=== PATIENT | female | born 1940 | race Hispanic/Latino ===

== ENCOUNTER 2017-09-09 07:24 | Outpatient (CLI) | payer MEDICARE, MEDICAID ==
--- NOTE | 2017-09-09 11:35 | RAD ---
UPPER GI: Date: 09/09/17 COMPARISON: None. HISTORY: Evaluate hiatal hernia. FINDINGS: [employer] radiograph of the abdomen demonstrates a nonobstructed bowel gas pattern. A double contrast upper GI was performed. The distal esophagus is diffusely distended/dilated through out this examination. When the patient was initially imaged in the standing position. There is a sugg estion of a hiatal hernia which does not fill with contrast media. When the patient is in the supine and prone position, the hiatal hernia fills, and is located in the left paraesophageal region. This h iatal hernia is moderate in size. When the patient is prone and supine, there is marked reflux of con trast media from the stomach and the hiatal hernia into the proximal esophagus at the level of the cl avicles. The stomach appears otherwise unremarkable. IMPRESSION: Moderate sized left paraesophageal hiatal hernia. The esophagus is diffusely dilated and tortuous wit h severe gastroesophageal reflux to the level of the thoracic inlet. POS: [facility]
== END 2017-09-09 07:25 | disposition home or self-care (01) ==
LOC: RAD 07:24
PROVIDERS: ATTEND Specialist
DX: K44.9 Diaphragmatic hernia without obstruction or gangrene (principal); K21.9 Gastro-esophageal reflux disease without esophagitis
CPT/HCPCS: 74247

== ENCOUNTER → 2017-09-09 | Day surgery (SDC) | payer MEDICARE, MEDICAID | LOC: ENDO/OP 07:30 | PROVIDERS: ATTEND Specialist | DX: K44.9 Diaphragmatic hernia without obstruction or gangrene (principal); I10 Essential (primary) hypertension; E78.00 Pure hypercholesterolemia, unspecified; E07.9 Disorder of thyroid, unspecified; E11.9 Type 2 diabetes mellitus without complications; Z79.84 Long term (current) use of oral hypoglycemic drugs; Z79.52 Long term (current) use of systemic steroids; Z79.899 Other long term (current) drug therapy | CPT/HCPCS: 91010 ==

== ENCOUNTER 2017-09-30 07:55 | Observation (INO) | payer MEDICARE, MEDICAID ==
[2017-09-30 08:48] LABS: #Eosinphils 0.3 thou/uL (0.0-0.7); #Lymphocytes 2.4 thou/uL (1.20-3.40); #Monocytes 0.5 thou/uL (0.11-0.59); #Neutrophils 3.1 thou/uL (1.40-6.50); %Basophils 0.6 % (0.0-1.0); %Eosinophils 5.4 % (0.0-10.0); %Lymphocytes 37.1 % (21.0-51.0); %Monocytes 8.3 % (0.0-10.0); %Neutrophils 48.6 % (42.0-75.0); Hemoglobin 10.2 g/dL (12.0-16.0); Mean Corpuscular HGB CONC 30.6 g/dL (32.0-36.0); Mean Corpuscular Hemoglobin 23.8 pg (27.0-31.0); Mean Platelet Volume 9.4 fL (7.4-10.4); Platelet Count 190 thou/uL (130-400); Red Blood Cell (RBC) Count 4.29 mill/uL (4.20-5.40); White Blood Cell (WBC) Count 6.3 thou/uL (4.8-10.8)
[2017-09-30 08:57] LABS: Anion Gap 12 mmol/L (10-20); BUN (Urea Nitrogen) 12 mg/dL (9.8-20.1); Calc. Creatinine Clearance 59 mL/min (70-130); Calcium 9.3 mg/dL (7.8-10.44); Carbon Dioxide 25 mmol/L (23-31); Chloride 108 mmol/L (98-107); Estimated GFR-MDRD 66; Glucose 103 mg/dL (83-110); Sodium 141 mmol/L (136-145)
[2017-09-30] MEDS ORDERED: Ketorolac Tromethamine 30 MG/ML VIAL ONE (08:59)
[2017-09-30] MEDS ORDERED: CEFAZOLIN/Water 2 GM/20 ML SYRINGE ONE (08:59)
[2017-09-30] MEDS ORDERED: Fentanyl 250 MCG/5 ML VIAL ONE (10:54)
[2017-09-30] MEDS ORDERED: Bupivacaine/Epinephrine 0.25% 30 ML VIAL ONE (10:56)
[2017-09-30] MEDS ORDERED: Promethazine HCl 25 MG/ML VIAL IM PRN ×2 (12:38→15:53)
[2017-09-30] MEDS ORDERED: Ondansetron HCl/PF 4 MG/2 ML Vial IVP PRN ×2 (12:38→15:53)
[2017-09-30] MEDS ORDERED: Promethazine HCl 25 MG/ML VIAL SLOW IVP PRN (12:38)
[2017-09-30] MEDS ORDERED: Morphine Sulfate 2 MG/ML SYRINGE SLOW IVP PRN (12:38)
[2017-09-30] MEDS ORDERED: Dextrose 50% Abboject 50 ML SYRINGE SLOW IVP PRN (15:53)
[2017-09-30] MEDS ORDERED: Insulin Regular 300 UNITS/3 ML VIAL SC PRN (15:53)
[2017-09-30] MEDS ORDERED: Calcium Carbonate 500 MG ChewTAB PO PRN (15:53)
[2017-09-30] MEDS ORDERED: Mag-Al 1200 mg/1200 mg/30 ML UDCUP PO PRN (15:53)
[2017-09-30] MEDS ORDERED: Morphine 4 MG/ML VIAL SLOW IVP PRN ×2 (15:53)
[2017-09-30] MEDS ORDERED: hydrALAZINE 20 MG/ML VIAL SLOW IVP PRN (15:53)
[2017-09-30] MEDS ORDERED: Dextrose 5% in Water 1,000 ML IV PRN (15:53)
[2017-09-30] MEDS ORDERED: HYDROcodone/Acetaminophen 5/325 mg Tablet PO PRN (15:53)
[2017-09-30 16:00] VITALS: BMI 29.4
[2017-09-30] MEDS: Lactated Ringer's 1,000 ML IV SCH (16:20)
[2017-09-30] MEDS ORDERED: PROPOFOL 200 MG/20 ML VIAL ONE (16:37)
[2017-09-30] MEDS ORDERED: Lidocaine 1% PF 5 ML VIAL ONE (16:37)
[2017-09-30] MEDS ORDERED: ePHEDrine/0.9% NaCl/PF SYRINGE 50 mg/10 ml ONE (16:37)
[2017-09-30] MEDS ORDERED: Succinylcholine Chloride 20 MG/ML 10 ml SYRINGE FS ONE (16:37)
[2017-09-30] MEDS ORDERED: Glycopyrrolate 0.2 MG/ML 5 ML SYRINGE ONE (16:37)
[2017-09-30] MEDS ORDERED: Dexamethasone 20 MG/5 ML VIAL ONE (16:37)
[2017-09-30] MEDS: Ketorolac Tromethamine 30 MG/ML VIAL IVP SCH ×2 (17:24→23:27)
[2017-09-30] MEDS: Famotidine 20 MG TAB PO SCH (21:53)
[2017-09-30] MEDS: Famotidine/PF 20 mg/2ml Vial SLOW IVP SCH (21:54)
[2017-09-30] MEDS: HYDROcodone/Acetaminophen 5/325 mg Tablet PO PRN (21:54)
[2017-10-01] MEDS: Lactated Ringer's 1,000 ML IV SCH (03:30)
[2017-10-01 05:47] LABS: #Lymphocytes 1.4 thou/uL (1.20-3.40); #Monocytes 0.5 thou/uL (0.11-0.59); #Neutrophils 5.5 thou/uL (1.40-6.50); %Basophils 0.3 % (0.0-1.0); %Eosinophils 0.2 % (0.0-10.0); %Lymphocytes 18.5 % (21.0-51.0); %Neutrophils 74.1 % (42.0-75.0); Hemoglobin 8.5 g/dL (12.0-16.0); Mean Corpuscular HGB CONC 31.8 g/dL (32.0-36.0); Mean Corpuscular Hemoglobin 24.9 pg (27.0-31.0); Mean Corpuscular Volume 78.1 fl (81.0-99.0); Mean Platelet Volume 9.1 fL (7.4-10.4); Platelet Count 139 thou/uL (130-400); RBC Distribution Width 15.7 % (11.5-14.5); Red Blood Cell (RBC) Count 3.42 mill/uL (4.20-5.40); White Blood Cell (WBC) Count 7.4 thou/uL (4.8-10.8)
[2017-10-01] MEDS: Ketorolac Tromethamine 30 MG/ML VIAL IVP SCH ×2 (05:49→12:14)
[2017-10-01] MEDS: HYDROcodone/Acetaminophen 5/325 mg Tablet PO PRN ×2 (05:56→12:16)
[2017-10-01] MEDS ORDERED: Levothyroxine Sodium 100 MCG TAB PO SCH (06:00)
--- NOTE | 2017-10-01 07:01 | EKG ---
Test Reason : PREOP Blood Pressure : / mmHG Vent. Rate : 060 BPM Atrial Rate : 060 BPM P-R Int : 170 ms QRS Dur : 084 ms QT Int : 456 ms P-R-T Axes : 052 -09 050 degrees QTc Int : 456 ms Normal sinus rhythm Normal ECG No previous ECGs available Confirmed by IVAN BELL ([id number]) on 10/01/2017 7:01:44 AM Referred By: LORE Confirmed By:IVAN BELL
[2017-10-01 08:00] VITALS: TEMP 98.2
[2017-10-01] MEDS: Famotidine 20 MG TAB PO SCH (08:56)
[2017-10-01] MEDS ORDERED: Prevnar 13-Val Conj/PF 0.5 ML SYRINGE IM ONE (09:00)
[2017-10-01] MEDS: Famotidine/PF 20 mg/2ml Vial SLOW IVP SCH (09:49)
[2017-10-01 11:29] VITALS: BP 180/96
--- NOTE | 2017-10-04 11:46 | OP ---
DATE OF OPERATION: 09/30/2017 PREOPERATIVE DIAGNOSES: Hiatal hernia and gastroesophageal reflux disease. POSTOPERATIVE DIAGNOSES: Hiatal hernia and gastroesophageal reflux disease. OPERATION PERFORMED: Laparoscopic Loan fundoplication. SURGEON: Edvin Maria M.D. ANESTHESIA: General endotracheal. INDICATIONS: The patient is a 76-year-old female. She presents with symptoms referable to her hiatal hernia. She is recognized to have a good size hiatal hernia with about half of her stomac h up within the mediastinum. She has significant reflux in spite of proton pump inhibitor use. She is taken to the operating room at this time for laparoscopic Loan fundoplication. DESCRIPTION OF OPERATION: Informed consent was obtained. The patient was taken to the operating sierra m where general endotracheal anesthesia was obtained with the patient in supine position. Abdomen wa s prepped with ChloraPrep and draped in sterile fashion. Local anesthetic was infiltrated and 5-mm s upraumbilical incision was created through which a Veress needle was passed into the peritoneal cavit y and pneumoperitoneum established using carbon dioxide up to a pressure of 15 mmHg. A 5-mm trocar p ort site was passed through the same incision. Laparoscopic camera was passed through this port. Un earl direct vision, 4 additional ports were placed including an 11-mm left epigastric port, a 5-mm rig ht epigastric port, and bilateral subcostal 5 mm ports. The triangle retractor was passed through the right subcostal port and used to elevate the left lobe of the liver. This was held in place using the Ramakrishna's arm. Attention was turned to the hiatus. T he patient was noted to have a substantial hiatal hernia with a significant volume of stomach up with in the mediastinum. The stomach was retracted and attention was turned to the lesser curve. The par s flaccida was incised with the LigaSure device and dissection was carried down onto the right mara. The right mara was fully mobilized up to the anterior aspect of the hiatus. The peritoneal lining w as incised along the anterior and left side of the hiatus as well. The upper third of the greater cu rve of the stomach was mobilized by taking down the omentum and vascular tissue using the LigaSure de vice in an ascending fashion up to the left mara of the diaphragm. I then dissected the retroesophag eal window and passed a Kaylen drain through this. A #42 bougie was passed into the stomach unevent fully. The hiatal hernia sac was fully dissected out of the mediastinum and the esophagus was mobilized circ umferentially for several centimeters up into the mediastinum given maximum laxity. The crura were t hen approximated without tension posterior to the esophagus using three interrupted sutures of 0 Bral on, they were secured with the Ti-KNOT device. There was adequate laxity of the hiatus around the es ophagus. The fundus of the stomach was then withdrawn through the retroesophageal window. A very lo ose wrap was constructed. The wrap was then created with gastro-gastric sutures of 0 Bralon. Three sutures were placed, which were each a cm apart. The upper and lower sutures incorporated bites of t he anterior aspect of the esophagus as well. The laxity of the wrap was ensured final time. I then placed collar sutures of 0 Bralon between the wrap and the hiatus at the 10:30 and the 1:30 radians. A final suture of Bralon was placed between the posterior aspect of the wrap and the crural closure posteriorly to effect a posterior gastropexy. The operative site was then irrigated and all irrigant was aspirated. There had never been any subst antial blood loss. The triangle retractor was removed. The fascia at the 11-mm port site was closed with 0 Vicryl suture using a GraNee needle. All ports and instruments were removed under direct vis ion. Pneumoperitoneum was carefully evacuated. Quarter percent Marcaine with epinephrine was infilt rated in each port site. Skin edges approximated with 4-0 Monocryl subcuticular suture. Dermabond w as placed externally. There were no complications. The patient tolerated the procedure well and was taken to recovery room in stable condition.
== END 2017-10-01 14:46 | disposition home or self-care (01) ==
LOC: SDC 07:55 → SURG A 13:10
PROVIDERS: ADMIT Specialist; ATTEND Specialist
PROC: 0DV44ZZ Restriction of Esophagogastric Junction, Percutaneous Endoscopic Approach (ICD-10-PCS; principal; 2017-09-30)
DX: K44.9 Diaphragmatic hernia without obstruction or gangrene (principal); K21.9 Gastro-esophageal reflux disease without esophagitis; I10 Essential (primary) hypertension; E78.00 Pure hypercholesterolemia, unspecified; E11.9 Type 2 diabetes mellitus without complications; Z98.890 Other specified postprocedural states
CPT/HCPCS: 43280; 80048; 82962 ×2; 85025 ×2; 90670; 93005; 96361 ×2; 96374; 96375 ×2; 96376 ×2; 97139; G0009; G0378; 36415; 36416; 90471; 93010; J0131; J0360; J1100; J1815; J1885; J2001; J2270; J2704; J3010

== ENCOUNTER 2018-02-17 09:07 | Outpatient (CLI) | payer MEDICARE, MEDICAID ==
--- NOTE | 2018-02-17 12:13 | RAD ---
SINGLE CONTRAST UPPER GI: Date: 02/17/18 INDICATION: Loan fundoplication in September 2017 with difficulty swallowing. TECHNIQUE: Thin barium and thick barium were utilized for single contrast modified upper GI. Total fluoroscopic time was 3.4 minutes. Total exposure was 305.37 mGy*cm^2. The examination was performed standing and right lateral decubitus position. FINDINGS: There are numerous tertiary contractions involving mid to distal esophagus. There is a moderate size hiatal hernia. There is narrowing at the gastroesophageal interval, which is new from the comparison exam, likely related to patient's recent Loan fundoplication. The fundoplication site, in addition to the proximal gastric body, is herniated into the lower thoracic cavity. There is mild hold-up of t he barium contrast column at the level of the Loan fundoplication as expected. No elicitation of an y reflux was demonstrated during the examination. The 12.5 mm barium tablet passed without difficulty . No intraluminal mass is grossly evident. ACDF plate is seen involving the lower cervical spine. Vis ualized aspects of the stomach and proximal small bowel are within normal limits. IMPRESSION: 1. Interval Loan fundoplication with expected narrowing at the gastroesophageal junction. No reflu x demonstrated. 2. Interval development of a moderate hiatal hernia. 3. Numerous tertiary contractions of the mid to distal esophagus, likely related to presbyesophagus or esophagitis. POS: [facility]
== END 2018-02-17 09:08 | disposition home or self-care (01) ==
LOC: RAD 09:07
PROVIDERS: ATTEND Specialist
DX: Z48.815 Encounter for surgical aftercare following surgery on the digestive system (principal); K44.9 Diaphragmatic hernia without obstruction or gangrene; K22.8 Other specified diseases of esophagus; Z98.890 Other specified postprocedural states
CPT/HCPCS: 74241

== ENCOUNTER 2021-11-06 06:50 | Outpatient (CLI) | payer MEDICARE, MEDICAID ==
[2021-11-06 19:25] LABS: SARS-CoV-2 PCR by NAA Not Detected (NotDetected)
== END 2021-11-06 06:51 | disposition home or self-care (01) ==
LOC: LABBT 06:50
PROVIDERS: ATTEND Ophthalmology Retina Specialist
DX: H35.342 Macular cyst, hole, or pseudohole, left eye (principal); H54.7 Unspecified visual loss; Z20.822 Contact with and (suspected) exposure to COVID-19
CPT/HCPCS: U0003; U0005

== ENCOUNTER 2021-11-11 07:41 | Day surgery (SDC) | payer MEDICARE, MEDICAID ==
[2021-11-10 11:41] VITALS: BMI 28.3
[~2021-11-11 07:41] MED LIST: EPINEPHrine 0.3 MG in Ophthalmic Irrigation Solution 500 ML IRR SCH
[2021-11-11] MEDS ORDERED: Phenylephrine 2.5% Ophth Soln 5 ML BOT ONE (08:28)
[2021-11-11] MEDS ORDERED: Cyclopentolate 1% Opth Drop 2 ML BOT ONE (08:28)
[2021-11-11] MEDS ORDERED: fentaNYL Citrate/PF 100 MCG/2 ML SYRINGE ONE (09:04)
[2021-11-11] MEDS ORDERED: Midazolam HCl 2 mg/2 ml Vial ONE (09:04)
[2021-11-11] MEDS ORDERED: Bupivacaine 0.75% 10 ML VIAL ONE (10:09)
[2021-11-11] MEDS ORDERED: Lidocaine 1% PF 5 ML VIAL ONE (10:09)
[2021-11-11] MEDS ORDERED: Lidocaine 4% PF 5 ML AMP ONE (10:09)
[2021-11-11] MEDS ORDERED: Metoprolol Tartrate 5 MG/5 ML VIAL ONE (10:09)
[2021-11-11] MEDS ORDERED: CEFAZOLIN 1 GM VIAL ONE (10:09)
[2021-11-11] MEDS ORDERED: Triamcinolone 40 MG/ML VIAL ONE (10:09)
[2021-11-11] MEDS ORDERED: PROPOFOL 200 MG/20 ML VIAL ONE (10:09)
== END 2021-11-11 12:05 | disposition home or self-care (01) ==
LOC: SDC 07:41
PROVIDERS: ATTEND Ophthalmology Retina Specialist
PROC: 08T53ZZ Resection of Left Vitreous, Percutaneous Approach (ICD-10-PCS; principal; 2021-11-11)
PROC: 08NF3ZZ Release Left Retina, Percutaneous Approach (ICD-10-PCS; 2021-11-11)
DX: H35.342 Macular cyst, hole, or pseudohole, left eye (principal); Z79.52 Long term (current) use of systemic steroids; Z79.84 Long term (current) use of oral hypoglycemic drugs; Z79.890 Hormone replacement therapy; Z79.899 Other long term (current) drug therapy
CPT/HCPCS: 67025; J0171; J0690; J2250; J2704; J3301; J3490

== ENCOUNTER 2021-11-28 07:55 | Outpatient (CLI) | payer MEDICARE, MEDICAID | END 2021-11-28 07:56 | disposition home or self-care (01) | LOC: LABBT 07:55 | PROVIDERS: ATTEND Specialist | DX: H35.342 Macular cyst, hole, or pseudohole, left eye (principal); Z20.822 Contact with and (suspected) exposure to COVID-19 | CPT/HCPCS: U0003; U0005 ==

== ENCOUNTER 2021-12-02 05:54 | Day surgery (SDC) | payer MEDICARE, MEDICAID ==
[2021-11-28 13:38] VITALS: BMI 29.5
[2021-12-02] MEDS ORDERED: Midazolam HCl 2 mg/2 ml Vial ONE (06:32)
[2021-12-02] MEDS ORDERED: PROPOFOL 20 ML ONE (06:32)
[2021-12-02] MEDS ORDERED: fentaNYL Citrate/PF 100 MCG/2 ML SYRINGE ONE (06:32)
[2021-12-02] MEDS ORDERED: Phenylephrine 2.5% Ophth Soln 5 ML BOT ONE (06:42)
[2021-12-02] MEDS ORDERED: Cyclopentolate 1% Opth Drop 2 ML BOT ONE (06:42)
[2021-12-02] MEDS ORDERED: Lidocaine 1% MPF 2 ML VIAL ONE (06:42)
[2021-12-02] MEDS ORDERED: EPINEPHrine 0.3 MG in Ophthalmic Irrigation Solution 500 ML IRR SCH (06:45)
[2021-12-02] MEDS ORDERED: Maxitrol 0.1% Opth Oint 3.5 GM TUBE ONE (08:38)
[2021-12-02] MEDS ORDERED: Triamcinolone 40 MG/ML VIAL ONE (08:38)
[2021-12-02] MEDS ORDERED: Lidocaine 4% PF 5 ML AMP ONE (08:38)
[2021-12-02] MEDS ORDERED: CEFAZOLIN 1 GM VIAL ONE (08:38)
[2021-12-02] MEDS ORDERED: Bupivacaine 0.75% 10 ML VIAL ONE (08:38)
[2021-12-02] MEDS ORDERED: Indocyanine Green 25 MG/10 ML VIAL ONE (08:38)
[2021-12-02] MEDS ORDERED: Lidocaine 1% PF 5 ML VIAL ONE (08:38)
== END 2021-12-02 09:39 | disposition home or self-care (01) ==
LOC: SDC 05:54
PROVIDERS: ATTEND Ophthalmology Retina Specialist
PROC: 08T53ZZ Resection of Left Vitreous, Percutaneous Approach (ICD-10-PCS; principal; 2021-12-02)
PROC: 08NF3ZZ Release Left Retina, Percutaneous Approach (ICD-10-PCS; 2021-12-02)
DX: H35.342 Macular cyst, hole, or pseudohole, left eye (principal); Z79.52 Long term (current) use of systemic steroids; Z79.84 Long term (current) use of oral hypoglycemic drugs; Z79.890 Hormone replacement therapy; Z79.899 Other long term (current) drug therapy
CPT/HCPCS: 67025; J0171; J0690; J2250; J2704; J3301; J3490